=== PATIENT | female | born 1995 | race Caucasian/White ===

== ENCOUNTER 2024-12-27 04:25 | Emergency (ER) | payer OTHER, SELFPAY ==
[2024-12-27 04:30] VITALS: BP 144/84
[2024-12-27 05:08] LABS: Hematocrit 41.1 % (37.0-47.0); Hemoglobin 14.1 g/dL (12.0-16.0); Mean Corp Hgb Conc. 34.3 g/dL (33.0-37.0); Mean Corpuscular Volume 83.2 fL (81.0-99.0); Nucleated Red Blood Cells % 0 %; Platelet Count 275 10^3/uL (130-400); Red Cell Dist. Width 12.6 % (11.5-14.5)
[2024-12-27 05:10] LABS: HCG, Serum Qualitative Screen Negative
[2024-12-27 05:17] LABS: ALT (SGPT) 21 U/L (0-35); AST (SGOT) 22 U/L (14-36); Albumin 4.7 g/dl (3.5-5.0); Alkaline Phosphatase 62 U/L (38-126); Blood Urea Nitrogen 13 mg/dl (7-17); Calcium 10.0 mg/dl (8.4-10.2); Carbon Dioxide 16 mmol/L (22-30); Chloride 113 mmol/L (98-107); Glucose 104 mg/dl (70-99); Potassium 3.4 mmol/L (3.5-5.1); Sodium 139 mmol/L (135-145); Total Protein 8.3 g/dl (6.3-8.2); eGFR > 60.00
[2024-12-27 05:26] LABS: Troponin I < 0.012 ng/ml
[2024-12-27 08:06] VITALS: BP 106/70
[2024-12-27] MEDS: KCL ELIXIR 40 MEQ PO (08:06)
[2024-12-27 09:16] LABS: D-Dimer < 0.27 ug/mlFEU (0.00-0.50)
--- NOTE | 2024-12-27 10:12 | ED.GENMED ---
History of Present Illness
General
Chief Complaint: Chest Pain
Source: patient and spouse
Time Seen by Provider: 12/27/24 07:37
History of Present Illness
History of Present Illness:
Note:
CHIEF COMPLAINT(S)
- Shortness of breath.
HISTORY OF PRESENT ILLNESS
The patient is a 29-year-old female who presents with a four-month history of intermittent shortness of breath. She has experienced difficulty breathing predominantly at night when lying down, though symptoms also occur during the day. The condition
has fluctuated in intensity, with some days being symptom-free, but in the past week, symptoms have persisted without relief. She reports significant shortness of breath last night, impacting her activities significantly, including work and exercise.
The patient tried allergy medications prescribed by her family physician and a nebulizer treatment provided by a physician, yet neither resulted in significant improvement. She has experienced pain in both calves and intermittent chest pain
localized to the mid-chest but denies any fever. The patient has also recently experienced gastroesophageal reflux symptoms, which she believes are a new development this month.
Laboratory tests and chest X-ray performed today were reported as normal. An electrocardiogram indicated normal results, and cardiac enzymes were within normal limits. A blood test is planned to rule out the possibility of a pulmonary embolism.
Additional historian
Spouse states that they do have plans on seeing a ventilating equipment installer for further testing next week
PHYSICAL EXAM
General: Alert, no acute distress.
Skin: Warm, dry.
Head: Normocephalic, atraumatic.
Neck: Supple, trachea midline.
Eyes, Ears, Nose, Mouth and Throat: Oral mucosa moist.
Cardiovascular: Heart is regular without murmurs, no peripheral edema.
Respiratory: Respirations are non-labored, lungs are clear to auscultation.
Gastrointestinal: Abdomen nondistended.
Back: Normal range of motion, normal alignment.
Musculoskeletal: Normal range of motion, normal strength.
Neurological: Alert and oriented to person, place, time, and situation, no focal neurological deficit observed.
Psychiatric: Cooperative, appropriate mood and affect.
PROBLEM LIST
Acute:
- Shortness of breath
- Chest pain
- Bilateral calf pain
PLAN
- A blood test to rule out pulmonary embolism.
- Continue monitoring of symptoms and assess test results.
DIFFERENTIAL DIAGNOSIS
The Differential Diagnosis includes, in no particular order and is not limited to:
- Pulmonary embolism
- Allergic asthma
- Gastroesophageal reflux disease (GERD) related respiratory issues
- Anxiety or panic disorder
- Heart failure
- Chronic obstructive pulmonary disease (COPD)
- Pneumonia
- Anemia
- Pulmonary hypertension
- Interstitial lung disease
EKG
My independent EKG interpretation is:
- Rhythm: Normal
- Heart Rate: Not specified
- IA Interval: Normal
- QRS Duration: Normal
- QT Interval: Normal
- Lulu: Normal
- ST Segment: No acute ischemic changes
- T Wave: No inversions noted
- Additional Notes: No arrhythmias observed
Disposition:
SUMMARY OF ENCOUNTER
The patient is a 29-year-old female who presented with a complaint of shortness of breath, which has been intermittent over several months but recently became persistent. She reported a significant episode the night before presentation.
Additionally, the patient mentioned recent diarrhea, which is believed to contribute to some abnormal lab results. In the emergency department (ED), her vital signs were stable, with normal pulse oximetry, heart rate, and respiratory rate. The
initial evaluation included a negative D-dimer, normal chest X-ray, and electrocardiogram (EKG) results. Laboratory findings indicated mild hypokalemia with a potassium level of 3.4 mmol/L and a mild non-anion gap acidosis with a bicarbonate level
of 16 mmol/L, which is suspected to be due to diarrhea. The complete blood count (CBC) was normal, as were the troponin levels and test. Given her history of reflux and respiratory symptoms, a decision was made to initiate a daily proton
pump inhibitor (PPI).
ASSESSMENT
Based on the presentation and lab results, the patients shortness of breath could be attributed to multiple factors, including possible non-anion gap acidosis related to diarrhea. The reflux symptoms may also contribute to respiratory discomfort.
PLAN
Initiate a daily proton pump inhibitor (PPI) for suspected gastroesophageal reflux disease-related respiratory symptoms. The patient is advised to follow up with a ventilating equipment installer for further pulmonary testing, which is deemed appropriate given her
ongoing symptoms.
INDEPENDENT REVIEW OF LABS AND INTERPRETATION OF TESTS
- My independent review of electrolytes reveals mild hypokalemia with a potassium level of 3.4 mmol/L.
- My independent interpretation of arterial blood gases shows a mild non-anion gap acidosis with a bicarbonate level of 16 mmol/L.
- My independent review of CBC is normal, and D-dimer, troponin, test results are also normal.
MEDICATION RECONCILIATION
A proton pump inhibitor (PPI) is prescribed for daily use.
MEDICAL DECISION MAKING
- Number and Complexity of Problems Addressed: Shortness of breath, non-anion gap acidosis, mild hypokalemia, gastroesophageal reflux disease (GERD) symptoms.
- Data:
- Category 1: Review of laboratory tests, including normal CBC, D-dimer, troponin, test, and normal chest X-ray.
- Category 2: My independent interpretation of EKG is normal.
- Risk: Consideration of a daily PPI prescription to manage GERD-related symptoms.
DIAGNOSIS
- Gastroesophageal reflux disease (GERD) related respiratory symptoms (ICD-10: R06.02)
- Mild hypokalemia (ICD-10: E87.6)
- Non-anion gap metabolic acidosis, likely due to diarrhea (ICD-10: E87.2)
Phy Exam
Physical Exam
Physical Exam:
.
Scores
Heart Score for Chest Pain Patients
STEMI patient?: Not applicable
Course
Orders/Labs/Results
Orders:
Orders
12/27/24 04:34
Electrocardiogram (*1) Urgent
Reason for Study: Other
Other Reason for Exam: Respiratory Distress
Cardiac Monitoring- Treatment ONCE
EKG- Treatment ONCE
IV Insert/Care/Rem.- Treatment PRN
CR Chest - 2 Views Urgent
Comment:
Reason For Exam: respiratory distress
O2 Therapy [RESP] Urgent
Titrate/Wean O2 to maintain O2 sat greater than (%): 93
Special Instructions: TO MAINTAIN CONTINUOUS O2 SATS >/= 93%
Pulse Ox/cont/shift [RESP] Urgent
Quantity: 1
Special Instructions: continuous pulse ox
12/27/24 04:41
Test Result ONCE
12/27/24 04:49
Complete Blood Count/With Diff Urgent
Comprehensive Metabolic Panel Urgent
HCG, Serum Qualitative Screen Urgent
Comment: .
NT-proBNP Urgent
Troponin I Urgent
12/27/24 07:51
Potassium Chloride 10% Elixir [KCl Elixir] 40 meq PO NOW STA
12/27/24 08:15
D-Dimer Urgent
Abnormal Lab Results
12/27/24
04:49
MPV 10.9 H fL
(7.4-10.4)
Absolute Lymphs (auto) 3.7 H 10^3/uL
(1.2-3.4)
Potassium 3.4 L mmol/L
(3.5-5.1)
Chloride 113 H mmol/L
(98-107)
Carbon Dioxide 16 L mmol/L
(22-30)
Glucose 104 H mg/dl
(70-99)
Total Protein 8.3 H g/dl
(6.3-8.2)
12/27/24 04:49
12/27/24 04:49
Vital Signs
Initial and Last Documented VS:
Initial Vital Signs
Temp Pulse Resp BP Pulse Ox
97.9 F 61 20 144/84 100
12/27/24 04:30 12/27/24 04:30 12/27/24 04:30 12/27/24 04:30 12/27/24 04:30
Last Documented Vital Signs
Temp Pulse Resp BP Pulse Ox
97.9 F 76 17 106/70 100
12/27/24 04:30 12/27/24 09:15 12/27/24 09:15 12/27/24 08:06 12/27/24 09:15
*Pulse Oximetry
SaO2: 100
Nasal Cannula flow liters per minute: 100
Oxygen Mode of Delivery: Room air
Patient hypoxic: no
*Critical Care Note
Total Time (30-74mins, 75-104mins- exclusive of procedures): Not Applicable
ED Attending Note
-
Portions of this chart may have been created with voice recognition software.� Occasional wrong word or��sound alike� substitutions may have occurred due to the inherent limitations of voice recognition software.
Discharge Plan
Departure
Patient Disposition: Home (Routine Discharge)
Date of Disposition: 12/27/24
Time of Disposition: 10:15
Patient with high blood pressure during this ER visit?: No
Discharge Problem:
Dyspnea, Acute hypokalemia
Instructions: Hypokalemia, Shortness of breath
Prescriptions:
New
pantoprazole [Protonix] 40 mg tablet,delayed release (DR/EC)
40 mg PO DAILY Qty: 30 0RF
Rx Instructions:
Please take 30 minutes prior to eating or drinking anything in the morning.
Referrals:
Akua Alexis CRNP [Family Provider]
Activity Restrictions/Additional Instructions:
Please see your doctor in the next 3 to 5 days for follow-up and reevaluation. Return Molly for worsening symptoms, chest pain, fevers, coughing up blood, leg swelling or any other concerns.
Interventions
Interventions:
*Risk Screen - Suicide Last Done: 12/27/24 04:30
*General Assessment Last Done: 12/27/24 04:30
*Neglect/Abuse Screening Last Done: 12/27/24 04:30
*ED- Fall Risk Assessment Last Done: 12/27/24 04:30
*ED COVID-19 Vaccine History Last Done: 12/27/24 04:30
*ED Influenza Vaccine History Last Done: 12/27/24 04:30
ED- Cardiac Assessment Last Done: 12/27/24 08:04
Discharge Date and Time
Print Language: SENEGALESE
== END 2024-12-27 11:14 | disposition home or self-care (01) ==
LOC: EMR 04:25
PROVIDERS: Student in an Organized Health Care Education/Training Program; EMERGENCY PHYSICIAN Emergency Medicine; FAMILY PHYSICIAN Nurse Practitioner Family
DX: R06.00 Dyspnea, unspecified (principal); E87.6 Hypokalemia; R07.89 Other chest pain; R06.02 Shortness of breath; E87.20 Acidosis, unspecified; K21.9 Gastro-esophageal reflux disease without esophagitis
CPT/HCPCS: 99283; 71046; 80053; 83880; 84484; 84703; 85025; 85379; 93005